=== PATIENT | female | born 1990 | race American Indian/Alaskan Native ===

== ENCOUNTER 2021-03-06 06:02 | Day surgery (SDC) | payer OTHER ==
[2021-03-06] MEDS ORDERED: Midazolam 1 MG/ML 2 ML SDV IV ONE ×3 (06:03→07:02)
[2021-03-06] MEDS ORDERED: fentaNYL 100 MCG/2 ML SDV IV ONE ×3 (06:03→07:01)
[2021-03-06] MEDS ORDERED: Midazolam 1 MG/ML 2 ML SDV ONE (06:10)
[2021-03-06] MEDS ORDERED: fentaNYL 100 MCG/2 ML SDV ONE (06:10)
[2021-03-06] MEDS ORDERED: Dextrose 5%-0.45% NaCl 1,000 ML IV SCH (06:15)
--- NOTE | 2021-03-06 08:13 | OR ---
DATE: 03/06/2021 PROCEDURE: Esophagogastroduodenoscopy and multiple pinch biopsies. INSTRUMENT USED: [id number]-[id number] Olympus video panendoscope. PREMEDICATIONS: No oral or topical anesthesia used. Fentanyl 100 mcg intravenous, Versed 2 mg intravenous. Procedure was done under pulse oximetry, BP recording, and cardiac monitoring. INDICATION: The patient with persistent heartburn, abdominal pain, along with iron-deficiency anemia, unexplained, not responsive to medical measures, on PPI. Esophagogastroduodenoscopy is performed for detection of any active erosive lesions, Hernandez esophagus and/or malignancy also under consideration, H pylori status to be determined, small bowel biopsies to be obtained for celiac disease, endoscopic hemostasis therapy if needed. The scope was passed with ease. Adequate visualization of the esophagus was made from proximal to distal areas. No upper esophageal lesions identified. No distal esophageal stricture. No uphill or downhill esophageal varices. No Arina-Livingston tear. No evidence of erosive esophagitis by Miner criteria. No esophageal polyp or tumor mass identified. Z-line was seen at around 39 cm distal to the oral verge. No proximal gastric varices noted. Gastric fundus examination by retroflexion showed no polypoid lesions. No gastric ulcer, malignant mass, or vascular ectasia identified. Duodenal bulb showed no ulcer. Visualized second part of the duodenum was unremarkable. Multiple pinch biopsies, 4 in number were taken from different areas of the second part of the duodenum and tissues were also obtained from the duodenal bulb at 9 and 12 o'clock positions and sent for any histopathologic evidence of celiac disease. Multiple pinch biopsies were also obtained from the gastric and proximal body and sent for PyloriTek test for H pylori and histopathology. No bleeding was noted from any of the visualized areas at the completion of examination. Photographs were taken of the duodenal bulb, gastric antrum, fundus, and distal esophagus. IMPRESSION: Normal study. The patient tolerated the procedure well. [facility] /[id number]
== END 2021-03-06 09:17 | disposition home or self-care (01) ==
LOC: DL.ENDO 06:02
PROVIDERS: ATTEND Internal Medicine Gastroenterology
DX: K29.50 Unspecified chronic gastritis without bleeding (principal); D50.9 Iron deficiency anemia, unspecified; Z79.899 Other long term (current) drug therapy; Z86.16 Personal history of COVID-19
CPT/HCPCS: 87077; J2250; J3010; J7042